=== PATIENT | male | born 1950 | race Caucasian/White ===

== ENCOUNTER 2022-02-20 13:02 | Emergency (ER) | payer OTHER ==
[~2022-02-20 13:02] MED LIST: 24HOUR ALLERGY10 MG PO; MAG-OXIDE 400M400 MG PO; PREDNISONE 20MG20 MG PO; SEROQUEL 25MG T25 MG PO; SINGULAIR10 MG PO; SYMBICORT 80-10.2 GM INH; VENTOLIN HFA IN18 GM INH
[2022-02-20 16:37] LABS: BASOPHIL 0.3 % (0-2); EOSINOPHIL 0 % (0-7); HCT 50.2 % (42.0-52.0); HGB 16.8 g/dl (13.2-18.0); LYMPHOCYTE 10.3 % (15-48); MCH 32.5 pg (25.0-31.0); MCHC 33.5 g/dL (32.0-36.0); MCV 97.1 fL (78.0-100.0); MONOCYTE 13.1 % (0-12); MPV 9.8 fL (6.0-9.5); NRBC 0; PLT 199 K/uL (150-400); RBC 5.17 M/uL (4.70-6.00); RDW 12.6 % (11.5-14.0); WBC 10.3 K/uL (4.0-10.5)
[2022-02-20 16:45] LABS: BUN/CREAT RATIO (CALC) 8.1 RATIO; CREATININE 0.62 mg/dL (0.67-1.17); POTASSIUM 3.6 mmol/L (3.5-5.1)
[2022-02-20 17:08] LABS: CORONAVIRUS 2019 SARS-COV-2 NEGATIVE (NEGATIVE); INFLUENZA A NAA NEGATIVE (NEGATIVE)
[2022-02-20 18:04] LABS: RBC (FLUID) 2000 RBC/uL; WBC (FLUID) 31232 WBC/uL
[2022-02-20 18:29] LABS: CLARITY (FLUID) HAZY; COLOR (FLUID) YELLOW
[2022-02-20] MEDS ORDERED: NORCO 5-325 TA1 EACH PO (18:52)
== END 2022-02-20 17:30 | disposition home or self-care (01) ==
LOC: FER 13:02
PROVIDERS: Emergency Medicine; Nurse Practitioner Family
DX: M17.11 Unilateral primary osteoarthritis, right knee (principal); M25.461 Effusion, right knee; J44.9 Chronic obstructive pulmonary disease, unspecified; Z88.0 Allergy status to penicillin; Z88.8 Allergy status to other drugs, medicaments and biological substances; Z20.822 Contact with and (suspected) exposure to COVID-19; Z28.310 Unvaccinated for COVID-19
CPT/HCPCS: 36415; 73564; 80048; 83605; 85025; 86140; 87040; 87070; 87205; 89051; 89060; J2001; U0002